=== PATIENT | female | born 1970 | race Caucasian/White ===

== ENCOUNTER 2016-11-12 03:21 | Emergency (ER) | payer OTHER ==
[~2016-11-12] VITALS: Ht 172.7 cm; Wt 81.6 kg
[~2016-11-12 03:21] MED LIST: AMOXICILLIN875 M1 PO; AUGMENTIN 875 M1 TAB PO; BACTROBAN22 GM TOP; DIFLUCAN150 M1 PO; IBUPROFEN600 M1 PO; LEVOTHYROXIN0.137 MG PO; MOBIC15 M1 PO; PREDNISONE 20MG20 MG PO; PREDNISONE20 M1 PO; TRAMADOL HCL50 M1 PO; VIBRAMYCIN100 MG PO; ZITHROMAX Z-PA250 M1 PO; ZITHROMAX250 M2 PO
[2016-11-12 03:46] VITALS: BP 140/74
--- NOTE | 2016-11-12 03:47 | ED DYSPNEA/ASTHMA COMPLAINT ---
History of Present Illness General Chief Complaint: General Adult Stated Complaint: "PER PT I THINK I HAVE BRONCHITIS" Source: patient Exam Limitations: no limitations Vital Signs & Intake/Output Vital Signs & Intake/Output Vital Signs Date Time Temp Pulse Resp B/P Pulse O2 O2 Flow FiO2 Ox Delivery Rate 11/12 0352 98 Room Air 11/12 0346 96.9 112 18 140/74 98 Room Air Allergies Coded Allergies: NO KNOWN ALLERGIES (01/11/16) Reconcile Medications Albuterol Sulfate (Ventolin Hfa) 90 MCG HFA.AER.AD 2 PUF INH Q4-6 PRN PRN WHEEZE Amoxicillin 875 MG TABLET 1 TAB PO BID sinusitis Amoxicillin/Potassium Clav (Augmentin 875-125 Tablet) 875 MG-125 MG TABLET 1 TAB PO BID BRONCHITIS Benzonatate (Tessalon Perle) 100 MG CAPSULE 1-2 CAP PO TID PRN COUGH Ergocalciferol (Vitamin D2) (Vitamin D2) 50,000 UNIT CAPSULE 1 CAP PO QW VITAMIN SUPPORT (Reported) Ibuprofen 600 MG TABLET 1 TAB PO Q6PRN PRN pain with food Levothyroxine Sodium 0.137 MG TAB 1 TAB PO DAILY AC THYROID (Reported) Levothyroxine Sodium 150 MCG TABLET 1 TAB PO DAILY THYROID HEALTH (Reported) Prednisone 50 MG TABLET 1 TAB PO DAILY BRONCHITIS Prednisone 20 MG TABLET 1 TAB PO BID pharyngitis Triage Nurses Notes Reviewed? yes Onset: Gradual Duration: day(s): Timing: recent history Severity: mild, moderate Activities at Onset: none Prior Episodes/Possible Cause: occasional episodes Modifying Factors: Improves With: rest. Associated Symptoms: cough HPI: 45-year-old woman history of smoking, history of COPD presents with 2-3 day history of cough productive of sputum, low-grade temps, "not feeling well, "an occasional intermittent wheeze. She states that she is otherwise well. She has no chest pain dizziness and abdominal pain nausea vomiting diarrhea. Past History Travel History Traveled to [place] past 21 day No Medical History Any Pertinent Medical History? see below for history Neurological: NONE EENT: NONE Cardiovascular: NONE Respiratory: COPD, emphysema Gastrointestinal: NONE Hepatic: NONE Renal: NONE Musculoskeletal: NONE Psychiatric: NONE Endocrine: hypothyroidism Blood Disorders: NONE Cancer(s): hodgkins lymphoma MANAGER SPECIAL EVENTS/Reproductive: NONE Surgical History Surgical History: tubal ligation Psychosocial History What is your primary language [place] Family History Hx Contributory? No Review of Systems Review of Systems Constitutional: Reports: no symptoms. EENTM: Reports: no symptoms. Respiratory: Reports: no symptoms. Cardiovascular: Reports: no symptoms. GI: Reports: no symptoms. Genitourinary: Reports: no symptoms. Musculoskeletal: Reports: no symptoms. Skin: Reports: no symptoms. Neurological/Psychological: Reports: no symptoms. Hematologic/Endocrine: Reports: no symptoms. Immunologic/Allergic: Reports: no symptoms. All Other Systems: Reviewed and Negative Physical Exam Physical Exam General Appearance: well developed/nourished, mild distress Head: atraumatic, normal appearance Eyes: Bilateral: normal appearance. Ears, Nose, Throat: normal pharynx, normal ENT inspection Neck: normal inspection, supple, full range of motion Respiratory: chest non-tender, no respiratory distress, quiet respiration, mild rhonchi Cardiovascular: regular rate/rhythm Gastrointestinal: normal bowel sounds, soft, non-tender Extremities: normal inspection Neurologic/Psych: no motor/sensory deficits, awake, alert, oriented x 3 Skin: intact, normal color, warm/dry Core Measures ACS in differential dx? No Severe Sepsis Present: No Septic Shock Present: No Progress Differential Diagnosis: asthma, bronchitis, COPD Plan of Care: Well-appearing but with mild rhonchi. Given the history of COPD and treat with steroids and antibiotics. I advocated close follow-up with her primary care doctor Initial ED EKG: none Departure Departure Disposition: HOME OR SELF CARE Condition: Stable Clinical Impression Primary Impression: Bronchitis Referrals: JAREN IGNACIO MD (PCP/Family) Departure Forms: Customer Survey General Discharge Information Prescriptions: Current Visit Scripts Prednisone 1 TAB PO DAILY #4 TAB Albuterol Sulfate (Ventolin Hfa) 2 PUF INH Q4-6 PRN PRN WHEEZE #1 INHAL Ref 1 Amoxicillin/Potassium Clav (Augmentin 875-125 Tablet) 1 TAB PO BID #20 TAB Benzonatate (Tessalon Perle) 1-2 CAP PO TID PRN COUGH #30 CAP Ref 1 Critical Care Note Critical Care Note Critical Care Time: non-applicable
[2016-11-12] MEDS ORDERED: LEVOTHYROXINE150 MCG PO (03:54)
[2016-11-12] MEDS ORDERED: VITAMIN D250000 UNIT PO (03:55)
[2016-11-12] MEDS ORDERED: VENTOLIN HFA18 GM INH (04:00)
[2016-11-12] MEDS ORDERED: TESSALON PERLE100 M1 PO (04:00)
[2016-11-12] MEDS ORDERED: PREDNISONE50 M1 PO (04:00)
[2016-11-12] MEDS ORDERED: AUGMENTIN 875-1 EACH PO (04:00)
== END 2016-11-12 04:12 ==
LOC: ERH 03:21
DX: J40 Bronchitis, not specified as acute or chronic (principal)
CPT/HCPCS: J3490

== ENCOUNTER → 2018-06-27 | Day surgery (SDC) | payer OTHER ==
[~2018-06-27] VITALS: Ht 172.7 cm; Wt 85.3 kg
[~2018-06-27] MED LIST changes: +AUGMENTIN 875-1 EACH PO; +LEVOTHYROXINE150 MCG PO; +PREDNISONE50 M1 PO; +TESSALON PERLE100 M1 PO; +VENTOLIN HFA18 GM INH; +VITAMIN D250000 UNIT PO
--- NOTE | 2018-06-27 15:04 | Operative Report ---
Operative/Inv Procedure Report Surgery Date: 06/27/18 Name of Procedure: Exam under anesthesia Myosure polypectomy Pre-Operative Diagnosis: Abnormal uterine bleeding Endometrial polyp Post-Operative Diagnosis: Same Estimated Blood Loss: scant Surgeon/Resident Programs Assistant: Asif Park MD Anesthesia: laryngeal mask airway Monitors: Per Anesthesiology IV Fluids: 300 cc Implants: NA Urine Output: 140 cc Drains: NA Specimens: Hysteroscopic curretings Microbiology: NA Complications: None Condition: Stable to RR Operative Indication: 47 year old female with hypothyroidism who reported AUB. She was noted to have an endometrial polyp on hysterosonography. I discussed surgical resection of the lesion as to control her AUB and she was amenable to this treatment plan. Consent for procedure outlining the risks and benefits and alternative was reviewed. Operative/Procedure Note Note: Patient taken to OR and prepped in usual sterile fashion Time out done prior to procedure. She was placed in dorsal lithotomy and her bladder was catheterized. An open ended speculum was placed in the vagina. At this point the cervix was grasped with a single tooth tenaculum. The cervix was serially dilated to size 8 with twan dilators. This was after an os finder was used for initial dilation. The Myosure hysteroscope was advanced into the uterus with the outlined findings noted. The polyp was visualized and resected without difficulty. No active bleeding noted Scope and all instruments reviewed. No active bleeding from the cervix noted. Tolerated procedure and LMA removed and went to RR in stable condition. Postoperative instructions outlined to patient and surgical findings reviewed. Follow up 2 weeks Findings: Normal appearing cervix and vulva/vagina. Uterine cervical canal wnl Posterior sessile endometrial polyp noted Bilateral cornu seen Discharge Disposition: SDS Additional Comments: Deficit from saline for Hysteroscopy was 170 cc. CC: Asif Park MD
== END ==
LOC: STS 03:11
DX: N93.9 Abnormal uterine and vaginal bleeding, unspecified (principal); N84.0 Polyp of corpus uteri; E03.9 Hypothyroidism, unspecified; F17.200 Nicotine dependence, unspecified, uncomplicated; Z85.71 Personal history of Hodgkin lymphoma
CPT/HCPCS: 88305; J2250